=== PATIENT | female | born 1995 | race Caucasian/White ===

== ENCOUNTER 2017-06-07 16:59 | Emergency (ER) | payer SELFPAY ==
--- NOTE | 2017-06-07 17:25 | ER Document Report ---
HPI - HPI Patient complains to provider of: Left ear pain Onset: Other - 2 hours Quality of pain: Throbbing Pain Level: 4 Context: 22-year-old female complaining of left ear pain for 2 hours. Yesterday her lower left teeth were hurting. No fever or chills. Associated Symptoms: None Exacerbated by: Movement - Of the external ear Relieved by: Denies - ROS ROS below otherwise negative: Yes Systems Reviewed and Negative: Yes All other systems reviewed and negative Past Medical History - General Information source: Patient - Social History Smoking Status: Never Smoker Frequency of alcohol use: None Drug Abuse: None Lives with: Spouse/Significant other Family History: Reviewed & Not Pertinent - Medical History Medical History: Negative Surgical Hx: Negative Vertical Provider Document - CONSTITUTIONAL Agree With Documented VS: Yes Exam Limitations: No Limitations - INFECTION CONTROL TRAVEL OUTSIDE OF THE [place] IN LAST 30 DAYS: No - HEENT HEENT: Normocephalic. negative: Tympanic Membrane Red Notes: Left ear canal erythema with tragus and pinna pain with movement. Rim of TM is inflamed no inner ear fluid. No pre-or posterior auricular nodes. Mastoid is normal. No Dental decay or abscess. - NECK Neck: Supple. negative: Lymphadenopathy-Left, Lymphadenopathy-Right - RESPIRATORY Respiratory: Breath Sounds Normal, No Respiratory Distress - CARDIOVASCULAR Cardiovascular: Regular Rate, Regular Rhythm - NEURO Level of Consciousness: Awake - DERM Integumentary: Warm, Dry Course - Vital Signs Vital signs: Temp Pulse Resp BP Pulse Ox 98.2 F 79 18 132/86 H 98 06/07/17 17:18 06/07/17 17:18 06/07/17 17:18 06/07/17 17:18 06/07/17 17:18 Discharge - Discharge Clinical Impression: Left otitis externa Qualifiers: Otitis externa type: unspecified type Chronicity: acute Qualified Code(s): H60.502 - Unspecified acute noninfective otitis externa, left ear Condition: Good Disposition: HOME, SELF-CARE Instructions: Otitis Externa ([facility]), Use of Ear Drops ([facility]), Ciprofloxacin ([facility]) , Steroid Medication, Warm Packs ([facility]), Acetaminophen Additional Instructions: Warm compress Antibiotic eardrops twice a day Return to the ER for increased pain swelling fever or reddness Prescriptions: Ciprofloxacin HCl/Dexameth [Ciprodex Otic Suspension 7.5 ml Bottle] 4 drop OS BID #1 bottle Referrals: CESARIO PORRAS MD [ACTIVE STAFF] - Follow up as needed
[2017-06-07] MEDS ORDERED: ACETAMINOPHEN 325 MG TABLET PO ONE (17:35)
[2017-06-07 18:33] VITALS: BP 116/80
== END 2017-06-07 18:32 | disposition home or self-care (01) ==
LOC: ER 16:59
DX: H60.502 Unspecified acute noninfective otitis externa, left ear (principal)
CPT/HCPCS: 99282